=== PATIENT | male | born 1990 | race Caucasian/White ===

== ENCOUNTER 2019-09-21 22:18 | Emergency (ER) | payer MEDICAID ==
[~2019-09-21] VITALS: Ht 180.3 cm; Wt 97.7 kg
[2019-09-22 00:33] VITALS: BP 136/80
== END 2019-09-22 00:35 | disposition home or self-care (01) ==
LOC: EMS 22:21
DX: J40 Bronchitis, not specified as acute or chronic (principal); F17.210 Nicotine dependence, cigarettes, uncomplicated
CPT/HCPCS: 87430